=== PATIENT | female | born 1940 | race Caucasian/White ===

== ENCOUNTER 2022-02-03 08:58 | Day surgery (SDC) | payer MEDICARE, OTHER ==
[~2022-02-03] VITALS: Ht 157.5 cm; Wt 81.8 kg
[~2022-02-03 08:58] MED LIST: CARV-50 PO; CELE200C PO; CETI-1 PO; ERGO500041 PO; ESTR-9; FIORINAL PO; FURO40TA4 PO; LEVO100T46 PO; LIDO700A32 SUBD; LIDOcaine Viscous 15ml cup ONE; LISI40TA13 PO; MIDAZolam 1 MG/ML 5ML VIAL ONE; OMEP-84 PO; SUCR1TAB28 CORPAK; [UNRECOGNIZED DRUG - CODE] PO; [UNRECOGNIZED DRUG - OTHER] PR; fentaNYL/PF 50MCG/1 ML 2ML syringe ONE
[2022-02-03 09:09] VITALS: BP 180/90
[2022-02-03 09:42] VITALS: BP 138/73
[2022-02-03 09:52] VITALS: BP 136/74
[2022-02-03 10:02] VITALS: BP 134/72
[2022-02-03 10:12] VITALS: BP 139/67
== END 2022-02-03 10:40 | disposition home or self-care (01) ==
LOC: GI LAB 08:58
PROVIDERS: ATTEND Internal Medicine Gastroenterology
DX: R13.10 Dysphagia, unspecified (principal); R12 Heartburn; K44.9 Diaphragmatic hernia without obstruction or gangrene; K22.89 Other specified disease of esophagus; K29.50 Unspecified chronic gastritis without bleeding; K22.70 Barrett's esophagus without dysplasia; K21.00 Gastro-esophageal reflux disease with esophagitis, without bleeding; K31.89 Other diseases of stomach and duodenum; I10 Essential (primary) hypertension; Z79.899 Other long term (current) drug therapy
CPT/HCPCS: 43239; 43450; G0500; J2250; J3010; J7030; Z7512; 99152; A4620

== ENCOUNTER 2022-02-23 09:55 | Emergency (ER) | payer MEDICARE, OTHER ==
[~2022-02-23] VITALS: Ht 157.5 cm; Wt 81.8 kg
[~2022-02-23 09:55] MED LIST changes: -LIDOcaine Viscous 15ml cup ONE; -MIDAZolam 1 MG/ML 5ML VIAL ONE; -fentaNYL/PF 50MCG/1 ML 2ML syringe ONE
[2022-02-23 10:24] LABS: BASOPHILS % (AUTO) 0.4 % (0-1); EOSINOPHILS # (AUTO) 0.1 X10'3 (0-0.9); EOSINOPHILS % (AUTO) 0.7 % (0-6); HEMATOCRIT 39.1 % (35.0-45.0); HEMOGLOBIN 13.2 g/dl (12.0-16.0); LYMPHOCYTES # (AUTO) 1.6 X10'3 (1.1-4.8); LYMPHOCYTES % (AUTO) 15.8 % (21-51); MEAN CORPUSCULAR HGB CONC 33.8 g/dL (33.0-36.5); MEAN CORPUSCULAR VOLUME 94.7 FL (78-98); MONOCYTES # (AUTO) 1.1 X10'3 (0-0.9); MONOCYTES % (AUTO) 11.2 % (2-12); NEUTROPHILS # (AUTO) 7.3 X10'3 (1.8-7.7); NEUTROPHILS % (AUTO) 71.9 % (42-75); PLATELET COUNT 275 X10'3 (140-440); RED BLOOD COUNT 4.13 X10'6 (4.20-5.60); RED CELL DISTRIBUTION WIDTH 13.8 % (11.5-14.5); WHITE BLOOD COUNT 10.1 X10'3 (4.5-11.0)
[2022-02-23] MEDS ORDERED: normal saline 1000ML IV soln IVB ONE (10:30)
[2022-02-23] MEDS ORDERED: ampicillin/sulbac 3gm/NS 100ml 100 ML IV STA (10:30)
[2022-02-23] MEDS ORDERED: dexamethasone sod phosphate 10mg/ml inj IV STA (10:30)
[2022-02-23] MEDS ORDERED: probenecid 500mg tablet PO ONE (10:35)
[2022-02-23 10:36] LABS: ALANINE AMINOTRANSFERASE 22 U/L (12-78); ALBUMIN 3.5 G/DL (3.4-5.0); ALBUMIN/GLOBULIN RATIO 0.9 (1.1-1.5); ALKALINE PHOSPHATASE 37 IU/L (46-116); ANION GAP 10 (8-16); ASPARTATE AMINO TRANSFERASE 12 U/L (10-37); BILIRUBIN,TOTAL 0.4 MG/DL (0.1-1.0); BLOOD UREA NITROGEN 10 MG/DL (7-18); BUN/CREATININE RATIO 13.9 (6.6-38.0); CALCIUM 8.8 MG/DL (8.5-10.1); CHLORIDE 106 MMOL/L (99-107); CREATININE 0.72 MG/DL (0.40-0.90); GLUCOSE 110 MG/DL (70-104); POTASSIUM 4.6 MMOL/L (3.5-5.1); SODIUM 139 MMOL/L (135-145); TOTAL PROTEIN 7.2 G/DL (6.4-8.2); eGFR 78 ML/MIN
[2022-02-23] MEDS ORDERED: iohexol 300mg/ml 100ml inj. ONE (10:56)
--- NOTE | 2022-02-23 11:18 | NUR ---
PT TO CT
--- NOTE | 2022-02-23 11:34 | NUR ---
BACK FROM CT
[2022-02-23] MEDS ORDERED: PRED20TA PO (12:43)
[2022-02-23] MEDS ORDERED: AMOX-580 PO (12:43)
[2022-02-23 13:05] VITALS: BP 159/68
== END 2022-02-23 13:07 | disposition home or self-care (01) ==
LOC: ER 09:55
DX: K11.20 Sialoadenitis, unspecified (principal); I10 Essential (primary) hypertension; E06.9 Thyroiditis, unspecified; Z88.6 Allergy status to analgesic agent; Z79.899 Other long term (current) drug therapy
CPT/HCPCS: 36415; 70490; 80053; 83605; 84145; 85025; 87040; 96365; 96375; 99285; J0295; J1100; J3490; J7030; Q9967

== ENCOUNTER 2023-08-04 10:41 | Observation (INO) | payer MEDICARE, OTHER ==
[2023-08-01 11:16] LABS: BASOPHILS % (AUTO) 0.5 % (0-1); EOSINOPHILS # (AUTO) 0.1 X10'3 (0-0.9); LYMPHOCYTES # (AUTO) 2.2 X10'3 (1.1-4.8); LYMPHOCYTES % (AUTO) 27.3 % (21-51); MEAN CORPUSCULAR HEMOGLOBIN 32.9 PG (27.0-31.0); MEAN CORPUSCULAR HGB CONC 33.8 g/dL (33.0-36.5); MEAN CORPUSCULAR VOLUME 97.5 FL (78-98); MEAN PLATELET VOLUME 7.9 FL (7.4-10.4); MONOCYTES # (AUTO) 0.9 X10'3 (0-0.9); MONOCYTES % (AUTO) 10.9 % (2-12); NEUTROPHILS # (AUTO) 4.8 X10'3 (1.8-7.7); NEUTROPHILS % (AUTO) 60.3 % (42-75); PRE OP HEMATOCRIT 40.4 % (35.0-45.0); PRE OP HEMOGLOBIN 13.6 g/dL (12.0-16.0); PRE OP PLATELET COUNT 244 X10'3 (140-440); RED BLOOD COUNT 4.15 X10'6 (4.20-5.60); RED CELL DISTRIBUTION WIDTH 13.3 % (11.5-14.5)
[2023-08-01 11:30] LABS: ALBUMIN 3.7 G/DL (3.4-5.0); ALKALINE PHOSPHATASE 42 IU/L (46-116); BLOOD UREA NITROGEN 14 MG/DL (7-18); BUN/CREATININE RATIO 18.2 (10.0-20.0); CHLORIDE 103 MMOL/L (99-107); CREATININE 0.77 MG/DL (0.40-0.90); PRE OP ALT 35 U/L (30-65); PRE OP ANION GAP 7 (8-16); PRE OP AST 23 U/L (10-37); PRE OP BILIRUB, TOTAL 0.3 MG/DL (0.0-1.0); PRE OP GLUCOSE 121 MG/DL (70-104); PRE OP POTASSIUM 4.4 MMOL/L (3.4-5.1); PRE OP SODIUM 135 MMOL/L (135-145); TOTAL CARBON DIOXIDE 24.7 MMOL/L (24-32); TOTAL PROTEIN 7.3 G/DL (6.4-8.2); eGFR 72 ML/MIN
[2023-08-04] VITALS (33 sets, daily range): BP systolic 156–197; BP diastolic 72–98; PULSE 64–98; RESP 11–19; TEMP 97.1–98; O2SAT 92–100
[~2023-08-04] VITALS: Ht 157.5 cm; Wt 87.0 kg
[~2023-08-04 10:41] MED LIST changes: +BUTA-281 PO; +DOCUMENT DATE & TIME OF BETA-BLOCKER PO ONE; -ESTR-9; -FIORINAL PO; -FURO40TA4 PO; -LIDO700A32 SUBD; -[UNRECOGNIZED DRUG - CODE] PO; -[UNRECOGNIZED DRUG - OTHER] PR; +cefazolin 2gm/D5W 100mL 100 ML IV ONE; +famotidine 20mg tablet PO ONE; +ringers solution, lacted 1,000 ML IV SCH
[2023-08-04] MEDS ORDERED: BUPIVAcaine/PF 2.5mg/ml (0.25%) 10ml vial ONE (12:16)
[2023-08-04] MEDS ORDERED: LIDOcaine 1% 30ml preserv. free vial ONE (12:16)
[2023-08-04] MEDS ORDERED: methylene blue (5mg/ml) 50mg/10ml ampul IV ONE (12:16)
[2023-08-04] MEDS ORDERED: fentaNYL/PF 50MCG/1 ML 2ML syringe ONE ×2 (13:01→13:26)
[2023-08-04] MEDS ORDERED: sevoflurane 250ml liquid IH ONE (13:04)
[2023-08-04] MEDS ORDERED: acetaminophen 1000 MG/100ml vial IV ONE (13:04)
[2023-08-04] MEDS ORDERED: succinylcholine 20mg/ml inj IV ONE (13:46)
[2023-08-04] MEDS ORDERED: dexamethasone sod phosphate 4mg/ml inj. ONE (13:46)
[2023-08-04] MEDS ORDERED: ondansetron/PF 4mg/2ml inj ONE (13:46)
[2023-08-04] MEDS ORDERED: rocuronium 10mg/ml inj IV ONE (13:46)
[2023-08-04] MEDS ORDERED: LIDOcaine 1% 30ml preserv. free vial IJ ONE (13:46)
[2023-08-04] MEDS ORDERED: labetalol 20mg/4ml (5mg/ml) syringe IV ONE (13:46)
[2023-08-04] MEDS ORDERED: propofol inj 20 ML IV ONE (13:46)
[2023-08-04] MEDS ORDERED: ketamine 50mg/5ml syringe ONE (13:49)
[2023-08-04] MEDS ORDERED: morphine 2 MG/ML inj. syringe IV PRN (14:00)
[2023-08-04] MEDS ORDERED: ringers solution, lacted 1,000 ML IV SCH (14:00)
[2023-08-04] MEDS ORDERED: HYDROmorphone/PF 0.2 MG/ML SYRINGE IV PRN ×2 (14:00→16:00)
[2023-08-04] MEDS ORDERED: ondansetron/PF 4mg/2ml inj IV PRN ×3 (14:00→16:00)
[2023-08-04] MEDS ORDERED: glycopyrrolate 0.2mg/ml inj ONE (14:42)
[2023-08-04] MEDS ORDERED: neostigmine methylsulfate 1 MG/ML 10ml vial ONE (14:42)
[2023-08-04] MEDS ORDERED: bacitracin 15gm ointment TP ONE (14:45)
[2023-08-04] MEDS ORDERED: ipratropium/albuterol 3ml nebule IH STA (15:14)
[2023-08-04] MEDS: ringers solution, lacted 1,000 ML IV SCH ×2 (15:15→23:15)
[2023-08-04] MEDS ORDERED: acetaminophen 325mg tablet PO PRN ×2 (15:15→16:00)
[2023-08-04] MEDS: HYDROmorphone/PF 0.2 MG/ML SYRINGE IV PRN ×2 (15:58→16:44)
[2023-08-04] MEDS: HYDROcodone/acetaminophen 5mg/325mg tablet PO PRN ×2 (16:00→21:44)
[2023-08-04] MEDS ORDERED: HYDROcodone/acetaminophen 5mg/325mg tablet PO PRN (16:00)
[2023-08-04] MEDS ORDERED: potassium Cl 20 mEq SR tablet PO PRN ×2 (16:00)
[2023-08-04] MEDS ORDERED: potassium Cl 40MEQ/1/2NS 520ml 520 ML IV PRN (16:00)
[2023-08-04] MEDS ORDERED: magnesium 2GM in 50ml NS 50 ML IV PRN (16:00)
[2023-08-04] MEDS ORDERED: magnesium hydroxide 30ml (MOM) UD suspension PO PRN (16:00)
[2023-08-04] MEDS ORDERED: HYDROmorphone inj. 0.5 MG/0.5 ML DISP.SYRIN IV PRN (16:00)
[2023-08-04] MEDS ORDERED: HYDROcodone/acetaminophen 10/325mg tab PO PRN (16:00)
[2023-08-04] MEDS ORDERED: mag hydrox/Alum hydrox/simeth 30ml oral suspension PO PRN (16:00)
[2023-08-04] MEDS: sodium chloride 0.45% 1,000 ML IV SCH (16:00)
[2023-08-04] MEDS ORDERED: diphenhydrAMINE 25mg capsule PO PRN (16:00)
[2023-08-04] MEDS ORDERED: magnesium Cl slow-release 64mg tablet PO PRN (16:00)
[2023-08-04] MEDS ORDERED: magnesium 4gm in 100ml NS 100 ML IV PRN (16:00)
[2023-08-04] MEDS ORDERED: butalbital/acetaminophen/caffeine (Fioricet) tablet PO PRN (17:05)
[2023-08-04] MEDS: carVEDilol 12.5mg tablet PO SCH (17:12)
[2023-08-04] MEDS ORDERED: lisinopril 20mg tablet PO STA (17:14)
[2023-08-04] MEDS: K and/or MAG REPLACEMENT MC SCH (20:00)
[2023-08-04] MEDS ORDERED: cetirizine 10mg tablet PO SCH (21:00)
[2023-08-04] MEDS: ceFAZolin/D5W- 1GM premix 50 ML IV SCH (21:42)
[2023-08-04] MEDS: docusate sod 100mg capsule PO SCH (21:43)
[2023-08-04] MEDS: sucralfate 1 gm tablet PO SCH (21:45)
[2023-08-05] MEDS ORDERED: cloNIDine 0.1 mg tablet PO PRN (01:25)
[2023-08-05 02:00] VITALS: PULSE 72; RESP 16; TEMP 98; O2SAT 96
[2023-08-05] MEDS: sodium chloride 0.45% 1,000 ML IV SCH ×2 (02:00→09:17)
[2023-08-05 06:41] LABS: BASOPHILS % (AUTO) 0.2 % (0-1); EOSINOPHILS % (AUTO) 0.2 % (0-6); HEMATOCRIT 36.9 % (35.0-45.0); HEMOGLOBIN 12.4 g/dl (12.0-16.0); LYMPHOCYTES # (AUTO) 2.4 X10'3 (1.1-4.8); LYMPHOCYTES % (AUTO) 21.9 % (21-51); MEAN CORPUSCULAR HEMOGLOBIN 32.8 PG (27.0-31.0); MEAN CORPUSCULAR HGB CONC 33.5 g/dL (33.0-36.5); MEAN CORPUSCULAR VOLUME 98.2 FL (78-98); MEAN PLATELET VOLUME 8.4 FL (7.4-10.4); MONOCYTES # (AUTO) 1.2 X10'3 (0-0.9); MONOCYTES % (AUTO) 11.3 % (2-12); NEUTROPHILS # (AUTO) 7.1 X10'3 (1.8-7.7); NEUTROPHILS % (AUTO) 66.4 % (42-75); PLATELET COUNT 217 X10'3 (140-440); RED BLOOD COUNT 3.76 X10'6 (4.20-5.60); RED CELL DISTRIBUTION WIDTH 13.3 % (11.5-14.5); WHITE BLOOD COUNT 10.7 X10'3 (4.5-11.0)
[2023-08-05] MEDS: ceFAZolin/D5W- 1GM premix 50 ML IV SCH (06:41)
[2023-08-05 06:42] VITALS: BP 138/63; PULSE 85; RESP 16; TEMP 98.9; O2SAT 97
[2023-08-05 06:49] LABS: ALANINE AMINOTRANSFERASE 39 U/L (12-78); ALBUMIN/GLOBULIN RATIO 0.9 (1.1-1.5); ALKALINE PHOSPHATASE 45 IU/L (46-116); ANION GAP 6 (8-16); ASPARTATE AMINO TRANSFERASE 36 U/L (10-37); BILIRUBIN,TOTAL 0.3 MG/DL (0.1-1.0); BLOOD UREA NITROGEN 9 MG/DL (7-18); CALCIUM 8.7 MG/DL (8.5-10.1); CHLORIDE 105 MMOL/L (99-107); CREATININE 0.75 MG/DL (0.40-0.90); GLUCOSE 123 MG/DL (70-104); MAGNESIUM 1.9 MG/DL (1.5-2.4); POTASSIUM 4.3 MMOL/L (3.5-5.1); SODIUM 138 MMOL/L (135-145); TOTAL CARBON DIOXIDE 26.6 MMOL/L (24-32); TOTAL PROTEIN 6.3 G/DL (6.4-8.2); eCRCL 47 ML/MIN; eGFR 74 ML/MIN
[2023-08-05] MEDS ORDERED: levoTHYROXINE 100mcg tablet PO SCH (07:00)
[2023-08-05] MEDS: sucralfate 1 gm tablet PO SCH ×2 (07:11→13:43)
[2023-08-05] MEDS: carVEDilol 12.5mg tablet PO SCH (07:11)
[2023-08-05] MEDS: docusate sod 100mg capsule PO SCH (07:11)
[2023-08-05] MEDS: ringers solution, lacted 1,000 ML IV SCH (07:15)
[2023-08-05] MEDS ORDERED: pantoprazole 40mg Tablet.DR PO SCH (08:00)
[2023-08-05] MEDS: K and/or MAG REPLACEMENT MC SCH (08:00)
[2023-08-05] MEDS ORDERED: lisinopril 20mg tablet PO SCH (08:00)
[2023-08-05] MEDS ORDERED: celeCOXIB 100mg capsule PO SCH (08:00)
[2023-08-05] MEDS ORDERED: enoxaparin 40mg/0.4ml syringe SUBCUT SCH (08:00)
[2023-08-05 11:21] VITALS: BP 192/77; PULSE 68; RESP 17; TEMP 97.7; O2SAT 99
[2023-08-05 13:37] VITALS: BP 123/53
[2023-08-10] MEDS ORDERED: ergocalciferol (vit D2) capsule 50,000 UNITS (1,250mcg) CAPSULE PO SCH (08:00)
== END 2023-08-05 14:50 | disposition home or self-care (01) ==
LOC: PRE-OP 10:41 → PAS IN 15:20 → ORTHO 4S 17:55
PROVIDERS: ADMIT Surgery; ATTEND Surgery
DX: C50.912 Malignant neoplasm of unspecified site of left female breast (principal); I10 Essential (primary) hypertension; M19.90 Unspecified osteoarthritis, unspecified site; K21.9 Gastro-esophageal reflux disease without esophagitis; F32.A Depression, unspecified; E03.9 Hypothyroidism, unspecified; K27.9 Peptic ulcer, site unspecified, unspecified as acute or chronic, without hemorrhage or perforation; L98.9 Disorder of the skin and subcutaneous tissue, unspecified; Z85.3 Personal history of malignant neoplasm of breast; Z87.11 Personal history of peptic ulcer disease; Z87.891 Personal history of nicotine dependence; Z79.899 Other long term (current) drug therapy
CPT/HCPCS: 19301; 36415; 76098; 80053; 82948; 83735; 85025; 93005; 94640; 94760; 96365; 96366; 96375; 96376; A6223; G0378; J0131; J0330; J0690; J1100; J1170; J2405; J2704; J2710; J3010; J3490; J7030; J7120; 88307; A4215; A4618; A6258; A6402; A7000; Q9968